=== PATIENT | female | born 1970 | race Caucasian/White ===

== ENCOUNTER → 2020-06-04 17:32 | Outpatient (CLI) | payer BC, SELFPAY ==
[2020-06-04 18:05] LABS: Basophils % 0.5 % (0.1-2.0); Eosinophils # 0.1 K/mm3 (0.0-0.4); Eosinophils % 1.2 % (0.1-12.0); Hematocrit 45.6 % (37.0-47.0); Hemoglobin 14.9 g/dL (12.2-16.2); Lymphocytes # 2.7 K/mm3 (0.7-4.5); Lymphocytes % 32.6 % (10-50); Mean Corpuscular HGB Conc 32.8 g/dL (31.8-35.4); Mean Corpuscular Hemoglobin 30.1 pg (27.0-31.2); Mean Corpuscular Volume 91.8 fl (81-99); Mean Platelet Volume 9.1 fl (7.4-10.4); Monocytes # 0.4 K/mm3 (0.1-1.0); Monocytes % 4.9 % (1.7-9.3); Neutrophils % 60.9 % (37.0-80.0); Platelet Count 287 K/mm3 (142-424); Red Blood Count 4.97 M/mm3 (4.20-5.40); Red Cell Distribution Width 12.6 % (11.5-17.5); White Blood Count 8.2 K/mm3 (4.8-10.8)
[2020-06-04 18:10] LABS: Alanine Aminotransferase 16 U/L (12-78); Albumin Level 4.2 g/dl (3.5-5.0); Albumin/Globulin Ratio 1.4 (1.1-1.8); Alkaline Phosphatase 66 U/L (38-126); Anion Gap 11.8 mEq/L (5-15); Aspartate Amino Transferase 31 U/L (14-36); Bilirubin,Total 0.5 mg/dl (0.2-1.3); Blood Urea Nitrogen 9 mg/dl (7-17); Calcium 9.3 mg/dl (8.4-10.2); Carbon Dioxide 27 mmol/L (22.0-30.0); Chloride 105 mmol/L (98-107); Estimated Glomerular Filt Rate 76 ml/min (>60); GFR (African American) 92 ML/MIN (>60); Glucose 82 mg/dl (74-100); Potassium 4.8 mmoL/L (3.5-5.1); Sodium 139 mmol/L (136-145); Total Protein,Serum 7.2 g/dl (6.3-8.2)
[2020-06-04 18:41] LABS: Thyroid Stimulating Hormone 2.79 uIU/mL (0.465-4.68)
== END ==
PROVIDERS: Visit Provider Family Medicine
DX: R53.83 Other fatigue (principal)
CPT/HCPCS: 80053; 84443; 85025

== ENCOUNTER → 2021-10-28 14:12 | Outpatient (CLI) | payer BC, SELFPAY ==
[2021-10-28 17:07] LABS: Basophils # 0.1 K/mm3 (0-0.2); Basophils % 0.8 % (0.1-2.0); Eosinophils # 0.1 K/mm3 (0.0-0.4); Eosinophils % 0.9 % (0.1-12.0); Hematocrit 43.7 % (37.0-47.0); Hemoglobin 14.6 g/dL (12.2-16.2); Lymphocytes # 2.7 K/mm3 (0.7-4.5); Lymphocytes % 28.1 % (10-50); Mean Corpuscular HGB Conc 33.5 g/dL (31.8-35.4); Mean Corpuscular Hemoglobin 31.1 pg (27.0-31.2); Mean Corpuscular Volume 92.9 fl (81-99); Mean Platelet Volume 9.9 fl (7.4-10.4); Monocytes # 0.5 K/mm3 (0.1-1.0); Neutrophils # 6.3 K/mm3 (1.8-7.8); Neutrophils % 65.2 % (37.0-80.0); Platelet Count 310 K/mm3 (142-424); Red Blood Count 4.71 M/mm3 (4.20-5.40); Red Cell Distribution Width 13.1 % (11.5-17.5); White Blood Count 9.7 K/mm3 (4.8-10.8)
[2021-10-28 17:13] LABS: Alanine Aminotransferase 21 U/L (12-78); Albumin Level 4.2 g/dl (3.5-5.0); Albumin/Globulin Ratio 1.6 (1.1-1.8); Alkaline Phosphatase 66 U/L (38-126); Anion Gap 10.4 mEq/L (5-15); Aspartate Amino Transferase 37 U/L (14-36); Bilirubin,Total 0.6 mg/dl (0.2-1.3); Blood Urea Nitrogen 12 mg/dl (7-17); Calcium 9.1 mg/dl (8.4-10.2); Carbon Dioxide 28 mmol/L (22.0-30.0); Chloride 105 mmol/L (98-107); Chol/HDL Ratio 2.8 (1-3.5); Cholesterol 256 mg/dl (140-200); Estimated Glomerular Filt Rate 88 ml/min (>60); GFR (African American) 106 ML/MIN (>60); Globulin 2.7 g/dL (1.3-3.2); Glucose 85 mg/dl (74-100); HDL Cholesterol 91 mg/dl (40-60); Potassium 4.4 mmoL/L (3.5-5.1); Sodium 139 mmol/L (136-145); Total Protein,Serum 6.9 g/dl (6.3-8.2); Triglycerides 85 mg/dl (30-150); VLDL Cholesterol 17 mg/dL (0-40)
[2021-10-28 17:24] LABS: Direct LDL Cholesterol 121.78 mg/dL (100-129)
== END ==
PROVIDERS: Visit Provider Family Medicine
DX: I10 Essential (primary) hypertension (principal); R74.8 Abnormal levels of other serum enzymes
CPT/HCPCS: 80053; 80061; 85025

== ENCOUNTER → 2021-12-01 12:42 | Outpatient (CLI) | payer BC, SELFPAY ==
--- NOTE | 2021-12-01 12:47 | XR_ITS ---
FINAL REPORT CLINICAL HISTORY: deep cough x3 months FINDINGS: Two views of the chest were obtained. The heart size and pulmonary vascularity are within normal limits. The mediastinum is normal. The lungs are hyperinflated consistent with COPD. There is no acute abnormality. There is no pneumothorax. The bony thorax is intact. IMPRESSION: No acute process. Reviewed, Interpreted and Dictated by Adi Navarrete III, MD Transcribed by Sara Gonzalez Authenticated by Adi Navarrete III, MD on 12/01/2021 02:50:57 PM [facility]
== END ==
PROVIDERS: PCP Family Medicine; Visit Provider Family Medicine
DX: R05.8 Other specified cough (principal)
CPT/HCPCS: 71046

== ENCOUNTER → 2022-12-28 23:00 | Outpatient (CLI) | payer BC, SELFPAY ==
[2022-12-28 18:24] LABS: Basophils # 0.1 K/mm3 (0-0.2); Basophils % 0.7 % (0.1-2.0); Eosinophils # 0.2 K/mm3 (0.0-0.4); Eosinophils % 2.5 % (0.1-12.0); Hematocrit 46.8 % (37.0-47.0); Hemoglobin 14.7 g/dL (12.2-16.2); Lymphocytes # 2.8 K/mm3 (0.7-4.5); Lymphocytes % 37.8 % (10-50); Mean Corpuscular HGB Conc 31.5 g/dL (31.8-35.4); Mean Corpuscular Hemoglobin 29.6 pg (27.0-31.2); Mean Platelet Volume 9.2 fl (7.4-10.4); Monocytes # 0.5 K/mm3 (0.1-1.0); Monocytes % 6.2 % (1.7-9.3); Neutrophils % 52.8 % (37.0-80.0); Platelet Count 312 K/mm3 (142-424); Red Blood Count 4.98 M/mm3 (4.20-5.40); Red Cell Distribution Width 12.9 % (11.5-17.5); White Blood Count 7.5 K/mm3 (4.8-10.8)
[2022-12-28 18:25] LABS: Alanine Aminotransferase 26 U/L (12-78); Albumin Level 4.2 g/dl (3.5-5.0); Albumin/Globulin Ratio 1.4 (1.1-1.8); Alkaline Phosphatase 66 U/L (38-126); Anion Gap 14.5 mEq/L (5-15); Aspartate Amino Transferase 35 U/L (14-36); Bilirubin,Total 0.4 mg/dl (0.2-1.3); Blood Urea Nitrogen 14 mg/dl (7-17); Carbon Dioxide 31 mmol/L (22.0-30.0); Chloride 101 mmol/L (98-107); Cholesterol 243 mg/dl (140-200); Estimated Glomerular Filt Rate 75 ml/min (>60); GFR (African American) 90 ML/MIN (>60); Globulin 2.9 g/dL (1.3-3.2); Glucose 75 mg/dl (74-100); HDL Cholesterol 82 mg/dl (40-60); Potassium 4.5 mmoL/L (3.5-5.1); Sodium 142 mmol/L (136-145); Total Protein,Serum 7.1 g/dl (6.3-8.2); Triglycerides 103 mg/dl (30-150); VLDL Cholesterol 21 mg/dL (0-40)
[2022-12-28 18:37] LABS: Direct LDL Cholesterol 114.94 mg/dL (100-129)
== END ==
PROVIDERS: PCP Family Medicine; Visit Provider Family Medicine
DX: E03.9 Hypothyroidism, unspecified (principal); I10 Essential (primary) hypertension
CPT/HCPCS: 80053; 80061; 85025

== ENCOUNTER 2023-12-13 09:39 | Outpatient (CLI) | payer BC, SELFPAY ==
[2023-12-13 18:13] LABS: Basophils # 0.1 K/mm3 (0-0.2); Basophils % 0.8 % (0.1-2.0); Eosinophils # 0.1 K/mm3 (0.0-0.4); Eosinophils % 1.2 % (0.1-12.0); Hematocrit 44.5 % (37.0-47.0); Hemoglobin 14.3 g/dL (12.2-16.2); Lymphocytes # 2.7 K/mm3 (0.7-4.5); Lymphocytes % 29.3 % (10-50); Mean Corpuscular HGB Conc 32.1 g/dL (31.8-35.4); Mean Corpuscular Hemoglobin 30.3 pg (27.0-31.2); Mean Corpuscular Volume 94.3 fl (81-99); Mean Platelet Volume 9.7 fl (7.4-10.4); Monocytes # 0.5 K/mm3 (0.1-1.0); Monocytes % 5.8 % (1.7-9.3); Neutrophils # 5.9 K/mm3 (1.8-7.8); Neutrophils % 62.8 % (37.0-80.0); Platelet Count 294 K/mm3 (142-424); Red Blood Count 4.72 M/mm3 (4.20-5.40); Red Cell Distribution Width 13.1 % (11.5-17.5); White Blood Count 9.3 K/mm3 (4.8-10.8)
[2023-12-13 18:31] LABS: Alanine Aminotransferase 23 U/L (12-78); Albumin Level 3.9 g/dl (3.5-5.0); Albumin/Globulin Ratio 1.4 (1.1-1.8); Alkaline Phosphatase 59 U/L (38-126); Anion Gap 8.7 mEq/L (5-15); Aspartate Amino Transferase 33 U/L (14-36); Bilirubin,Total 0.5 mg/dl (0.2-1.3); Blood Urea Nitrogen 12 mg/dl (7-17); Calcium 8.9 mg/dl (8.4-10.2); Carbon Dioxide 32 mmol/L (22.0-30.0); Chloride 101 mmol/L (98-107); Chol/HDL Ratio 2.4 (1-3.5); Cholesterol 212 mg/dl (140-200); Estimated Glomerular Filt Rate 65 ml/min (>60); GFR (African American) 79 ML/MIN (>60); Globulin 2.7 g/dL (1.3-3.2); Glucose 86 mg/dl (74-100); HDL Cholesterol 87 mg/dl (40-60); Potassium 3.7 mmoL/L (3.5-5.1); Sodium 138 mmol/L (136-145); Total Protein,Serum 6.6 g/dl (6.3-8.2); Triglycerides 90 mg/dl (30-150); VLDL Cholesterol 18 mg/dL (0-40)
[2023-12-13 18:48] LABS: T4 (Thyroxine) 10.5 ug/dl (5.53-11.0)
[2023-12-13 19:02] LABS: Thyroid Stimulating Hormone 1.62 uIU/mL (0.465-4.68)
== END 2023-12-13 23:59 | disposition home or self-care (01) ==
LOC: LAB.DROPOF 12-14 09:39
PROVIDERS: PCP Family Medicine; Visit Provider Family Medicine
DX: Z00.00 Encounter for general adult medical examination without abnormal findings (principal); Z79.899 Other long term (current) drug therapy
CPT/HCPCS: 80053; 80061; 84436; 84443; 85025

== ENCOUNTER 2025-01-02 12:20 | Outpatient (CLI) | payer BC, SELFPAY ==
--- OUTSIDE RECORDS SUMMARY | 2018-02-04 13:40 | XMS_ITS | Encounter Summary ---
Author [place] [address] Care Team Providers Care Handle And Vent Machine Operator Name Role Phone Kale Mukherjee MD Primary Care Provider [phone] Alisha Whitaker MD Unavailable Encounter Details Date Type Department Care Team (Latest Contact Info) Description 02/04/2018 1:40 PM EDT Hospital Encounter [facility] Referral Lab 1 [place], [place] [id number] Lela Deal, BURN CENTER NURSE [address] [place] [address] Effusion of left knee Social History Tobacco Use Types Packs/Day Years Used Date Smoking Tobacco: Never Smokeless Tobacco: Never Alcohol Use Standard Drinks/Week Comments Yes 0 (1 standard drink = 0.6 oz pur e alcohol) 4 to 8 drinks per year Sexually Active Control Partners Comments Yes OCP, Other-see comments Male Jewell h control Comments No Sex and Gender Information Value Date Recorded Sex Assigned at Not on file Legal Sex Female 12:12 PM EDT Gender Identity Not on file Sexual Orientation Not on file Occupation Industry Job Start Date Job End Date Not on file Not on file Not on file Not on file COVID-19 Exposure Response Date Recorded In the last 10 days, have yo u been in contact with someone who was confirmed or suspected to have Coronavirus/COVID-19? No / Unsure 03/01/2023 1:08 PM EDT documented as of this encounter Plan of Treatment Upcoming Encounters Date Type Department Care Team (Late st Contact Info) Description 10/15/2025 10:50 AM EDT Office Visit [facility] Diabetes [place] [address] [facility] [address] [place] [address] Alisha Whitaker MD [address] [facility] [address] [place] [phone] documented as of this encounter Goals Goal Patient Goal Type Associated Problems Recent Progress Patient-Stated? Author Maintain a healthy diet, exercise regularly and maintain an ideal body weight General Faiza Buitrago CCMA documented as of this encounter Results * URIC ACID (02/05/2018 11:36 AM EDT) Uric Acid 3.9 2.4 - 5.7 mg/dL 02/05/2018 2:47 PM EDT [facility] Blood Venipuncture / Unknown 02/05/2018 11:36 AM EDT 02/05/2018 11:36 AM EDT Lela Deal BURN CENTER NURSE CHEMISTRY ORDERABLES Cyndy l Result Performing Organization Address City/[facility] Co de Phone Number [employer] [address] [place] [address] , [place] [address] * SEDIMENTATION RATE AUTOMATED (02/05/2018 11:36 AM EDT) Sed Rate 2 0 - 20 mm/hr 02/05/2018 3:06 PM EDT [employer] Blood Venipuncture / Unknown 02/05/2018 11:36 AM EDT 02/05/2018 11:36 AM EDT Lela Deal BURN CENTER NURSE HEMATOLOGY ORDERABLES Fin al Result Performing Organization Address City/[facility] Co de Phone Number [employer] [address] [facility] , [place] [address] * RHEUMATOID FACTOR QUANTITATIVE (02/05/2018 11:36 AM EDT) RF Quant 13 <=14 IU/mL 02/05/2018 3:14 PM EDT [facility] Blood Venipuncture / Unknown 02/05/2018 11:36 AM EDT 02/05/2018 11:36 AM EDT us Lela Anita Deal BURN CENTER NURSE IMMUNOLOGY ORDERABLES Fin al Result [facility] [address] [facility] , [place] [address] * CBC WITH DIFF (02/05/2018 11:36 AM EDT) Pathologist [facility] WBC 9.3 3.7 - 10.3 x10(3)/mcL 02/05/2018 2:15 PM EDT [facility] RBC 4.97 3.90 - 5.20 x10(6)/mcL 02/05/2018 2:15 PM EDT [facility] Hgb 14.4 11.2 - 15.7 g/dL 02/05/2018 2:15 PM EDT [facility] Hct 44.2 34.0 - 45.0 % 02/05/2018 2:15 PM EDT [facility] MCV 88.9 79.0 - 98.0 fL 02/05/2018 2:15 PM EDT [facility] MCH 29.0 26.0 - 32.0 pg 02/05/2018 2:15 PM EDT [facility] MCHC 32.6 30.7 - 35.5 g/dL 02/05/2018 2:15 PM EDT [facility] RDW 12.3 <=14.9 % 02/05/2018 2:15 PM EDT [facility] Platelet 320 155 - 369 x10(3)/mcL 02/05/2018 2:15 PM EDT [facility] MPV 10.7 8.8 - 12.5 fL 02/05/2018 2:15 PM EDT [facility] Neut Percent 60.3 % 02/05/2018 2:15 PM EDT [facility], [facility] Comment:Neutrophils equals s egs plus bands Imm Gran% 0.2 % 02/05/2018 2:15 PM EDT [facility] Comment:Automated count of m etamyelocytes, myelocytes and promyelocytes. Lymph Percent 30.0 % 02/05/2018 2:15 PM EDT [facility] [place] Percent 7.4 % 02/05/2018 2:15 PM EDT [facility] Eos Percent 1.3 % 02/05/2018 2:15 PM EDT [facility] Baso Percent 0.8 % 02/05/2018 2:15 PM EDT [facility] Neut # 5.6 1.6 - 6.1 x10(3)/[facility] 02/05/2018 2:15 PM EDT [facility], [facility] Comment:Neutrophils equals s egs plus bands IMMGRAN# 0.0 0.0 - 0.1 x10(3)/[facility] 02/05/2018 2:15 PM EDT [facility], [facility] Comment:Automated count of m etamyelocytes, myelocytes and promyelocytes. An absolute IG <0.1 is reported as 0.0. Lymph # 2.8 1.2 - 3.9 x10(3)/[facility] 02/05/2018 2:15 PM EDT [facility], [facility] [place] # 0.7 0.3 - 0.9 x10(3)/[facility] 02/05/2018 2:15 PM EDT [facility], [facility] Eos# 0.1 0.0 - 0.5 x10(3)/[facility] 02/05/2018 2:15 PM EDT [facility], [facility] Baso # 0.1 0.0 - 0.1 x10(3)/[facility] 02/05/2018 2:15 PM EDT [facility] [employer], [facility] Blood Venipuncture / Unknown 02/05/2018 11:36 AM EDT 02/05/2018 11:36 AM EDT us Lela Howard Toyin BURN CENTER NURSE HEMATOLOGY ORDERABLES Fin al Result [facility], [facility] [address] [facility] , [place] [address] * C-REACTIVE PROTEIN (02/05/2018 11:36 AM EDT) [facility] CRP 2.99 <=5.00 mg/L 02/05/2018 2:47 PM EDT [facility] [employer] Blood Venipuncture / Unknown 02/05/2018 11:36 AM EDT 02/05/2018 11:36 AM EDT Lela Deal BURN CENTER NURSE CHEMISTRY ORDERABLES Cyndy l Result Performing Organization Address [facility] de Phone Number [facility] [employer] [address] [place] [address] * ANTINUCLEAR ANTIBODY SCREEN (02/05/2018 11:36 AM EDT) [facility] RICHY, IgG Negative Negative, Equivocal 02/06/2018 10:16 AM EDT [employer] Comment: RICHY samples are screened using an automated EIA assay. All samples that screen positive are titered by an IFA method and will include an RICHY pattern. A titer of < 1:80 is considered clinically insignificant. In general, a titer >= 1:160 is considered significant positive. Blood Venipuncture / Unknown 02/05/2018 11:36 AM EDT 02/05/2018 11:36 AM EDT Lela Deal BURN CENTER NURSE IMMUNOLOGY ORDERABLES Fin al Result Performing Organization Address [facility] de Phone Number [facility] [employer] [facility] [address] [facility] , [place] [address] documented in this encounter Visit Diagnoses Diagnosis Effusion of left knee Effusion of lower leg joint documented in this encounter Care Teams Handle And Vent Machine Operator Relationship Specialty Start Date End Date Kale Mukherjee MD PCP - General Family Medicine 04/04/17 02/17/18 Alisha Whitaker MD [address] [address] Internal Medicine-Endocrinology, Diabetes & Metabolism 04/10/14 documented as of this encounter
--- OUTSIDE RECORDS SUMMARY | 2021-07-14 05:15 | XMS_ITS | Continuity of Care Document ---
Author Organization [facility] Address [address] [place] [address] Phone Care Team Providers Care Transmissions Systems Operator Name Role Phone Clark MASON, Yolanda Unavailable Unavailable Allergies, Adverse Reactions, Alerts Substance Reaction Status Criticality No Known Allergies Active No Inform ation Medications Medication Instructions Dosage Effective Dates (start - stop) Status Comments ofloxacin 0.3 % eye drops instill 1 drop by ophthalmic route 2 times every day into right eye until follow up visit - Active Hair,Skin and Nails 1 mg iron-66.7 mcg-1,000 mcg tablet - Active Multiple Vitamins tablet take 1 tablet by oral route every day 1 tablet - Active Vitamin D3 25 mcg (1,000 unit) capsule take 1 capsule by oral route every day 1 capsule - Active Control ORAL TABLET - Active ICaps 3,300 unit-5 mg-200mg-75 unit tablet,extended release take 1 capsule by oral route every day - Active Glucosamine Chondroitin 550 mg-30 mg-1 mg capsule - Active lisinopril 20 mg tablet take 1 tablet by oral route every day 20 MG - Active levothyroxine 112 mcg capsule take 1 capsule by oral route every day 112 MCG - Active Procedures Procedure Date Post Op Follow Up Visit Repair Blepharoptosis Conjunctivo-tarso- schroeder's Muscle-levator Resection Repair Blepharoptosis Pbwvkpatib-jjktt-g ueller Muscle Levator Resection Surgery Deposit Visual Field Examination W I And R Limit ed Uni Or Bi OFFICE/OUTPATIENT VISIT, [facility] Advance Directives Directive Yes / No Effective Date File Name No Information Encounters Encounter Description Practice Location Reason(s) For Visit Diagnoses Date Provider Providers Copied on Encounter [facility] , [address] [place], [place], Critical access hospital, tel:[phone] [facility] [address] En[facility]tr for surgical aftcr fol surgery on the skin, subcu 1 Rodas Yolanda. [address] [place], [place], [id number] , [place]. tel:[phone] Referring Provider: No Ref Doc No Referring Doc. [facility], [address] [place], [place], Critical access hospital, tel:[phone] [facility] [place] Ptosis of right eyelid 1 [facility] [place]. [address] [place], [place], [id number] , [place]. tel:[phone] Referring Provider: Yolanda Roman, [address] [place], [address]. tel:[phone] [facility] , [address] [place], [place], Critical [facility], [place] tel:[phone] [facility] [place] Ptosis of right eyelid 1 Rod[address] Yolanda. [address] [place], [place], [id number] , [place]. tel:[phone] Referring Provider: No Ref Doc No Referring Doc. [facility] , [address] [place], [place], [facility], [place] tel:[phone] FRAN Romain Barreto No Information 1 Rod[address] Yolanda. [address] [place], [place], [id number] , . tel:[phone] [facility] , [address] [place], [place], Critical access [facility], [place] tel:[phone] [facility] No Information 1 Rod[address] Yolanda. [address] [place], [place], [id number] , . tel: [phone] Referring Provider: No Ref Doc No Referring Doc. [facility], [address] [place], [address], tel:[phone] [facility] Surgery [facility] No Information 1 Critical access hospital [facility] [place]. [address] [place], [place], [id number] , [place]. tel: [phone] OFFICE/OUTPAT IENT VISIT, [facility] , [address] [place], [address], tel:[phone] [facility] Droopy eyelid (chief complaint) Ptosis, bilateralVisual field defect Rodas Yolanda. [address] [place], [place], [id number] , . tel:[phone] Referring Provider: Axel Powell, [address] [place], [address]. tel:[phone] Family History Family Member Type Diagnosis Age At Onset Mother Problem (finding) Macular degeneration Mother Problem (finding) Cancer, breast Payers Payer name Insurance type Covered green party ID Chloe saleh(s) Margret Cerrato [facility] [place] [id number] Social History Type Description Quantity Date Captured Comments Alcohol Use Details Unknown Caffeine Use Details Unknown Tobacco Use Status No Information Smoking Status No Information Sex Female Chief Complaint And Reason For Visit No Information Reason For Referral Reason For Referral No Information History Of Present Illness Encounter Date Complaint History Of Prese nt Illness Droopy eyelid The 50 year old female presents for evaluation of Droopy eyelid in the right upper lid per Dr Powell. It started year(s) ago. The onset was gradual. Patient states her eyelid feels heavy and makes her feel tired. She states this happens all day and is worse at the end of the day. Patient denies double VA. She states she will raise her brow to see better. She will also manually lift her brow to see better. She will turn her head to the side to see beside her. She states she has trouble reading. The usage of more light helps her while reading. She states she can see her lashes & lids in her field of vision. She denies any tearing issues or dry eyes. The patient denies wearing contacts. Patient is not on any blood thinners. Patient denies any previous eyelid surgery.Pt states she had thyroid ablation in 2010, States she does have graves disease. Functional Status Date Functional Assessmen t No Information Instructions Date Instruction Additional Infor sonia Follow up - Return in PRN Relate d to Ptosis Repair Impression/Plan Assessments Type Assessment Date No Information Patient Care Teams Name Effective Dates (start - stop) Status Members No Information
[2025-01-02 17:59] LABS: Basophils % 0.1 % (0.1-2.0); Eosinophils # 0.1 Kmm3 (0.0-0.4); Eosinophils % 1.8 % (0.1-12.0); Hematocrit 43.3 % (37.0-47.0); Hemoglobin 14.4 g/dL (12.2-16.2); Immature Granulocytes # 0.01 10^3uL; Immature Granulocytes % 0.1 %; Lymphocytes # 2.2 K/mm3 (0.7-4.5); Mean Corpuscular HGB Conc 33.3 g/dL (31.8-35.4); Mean Corpuscular Hemoglobin 29.2 pg (27.0-31.2); Mean Corpuscular Volume 87.8 fl (81-99); Mean Platelet Volume 11.6 fl (7.4-10.4); Monocytes # 0.5 K/mm3 (0.1-1.0); Monocytes % 6.6 % (1.7-9.3); Neutrophils # 4.6 K/mm3 (1.8-7.8); Neutrophils % 61.4 % (37.0-80.0); Nucleated Red Blood Cells # 0 10^3/uL; Nucleated Red Blood Cells % 0 %; Platelet Count 259 K/mm3 (142-424); Red Blood Count 4.93 M/mm3 (4.20-5.40); Red Cell Distribution Width 12.3 % (11.5-17.5); Red Cell Distribution Width-SD 39.8 fL; White Blood Count 7.4 K/mm3 (4.8-10.8)
[2025-01-02 18:17] LABS: Albumin Level 4.3 g/dl (3.5-5.0); Chloride 102 mmol/L (98-107); Potassium 3.7 mmoL/L (3.5-5.1); Sodium 138 mmol/L (136-145)
[2025-01-02 18:20] LABS: Alanine Aminotransferase 28 U/L (12-78); Albumin/Globulin Ratio 1.5 (1.1-1.8); Alkaline Phosphatase 94 U/L (38-126); Anion Gap 8.7 mEq/L (5-15); Aspartate Amino Transferase 33 U/L (14-36); Bilirubin,Total 0.6 mg/dl (0.2-1.3); Blood Urea Nitrogen 17 mg/dl (7-17); Calcium 9.8 mg/dl (8.4-10.2); Carbon Dioxide 31 mmol/L (22.0-30.0); Cholesterol 214 mg/dl (140-200); Estimated Glomerular Filt Rate 74 ml/min (>60); GFR (African American) 90 ML/MIN (>60); Globulin 2.8 g/dL (1.3-3.2); Glucose 92 mg/dl (74-100); Total Protein,Serum 7.1 g/dl (6.3-8.2); Triglycerides 91 mg/dl (30-150); VLDL Cholesterol 18 mg/dL (0-40)
[2025-01-02 18:21] LABS: Chol/HDL Ratio 3.6 (1-3.5); HDL Cholesterol 60 mg/dl (40-60)
[2025-01-02 18:31] LABS: Direct LDL Cholesterol 104.44 mg/dL (100-129)
[2025-01-02 19:02] LABS: HIV Combo NEGATIVE (Negative)
[2025-01-02 19:50] LABS: Hepatitis C Ab Qual. W/ RFX NEGATIVE (Negative)
--- OUTSIDE RECORDS SUMMARY | 2025-01-02 22:47 | XMS_ITS | Clinical Summary ---
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 (ICD-10-CM) 08/09 Active 08/09 Noble Roberson Other specified dorsopathies, site unspecified LUMBAR MYOFASCIAL PAIN SYNDROME 10806803 (SNOMED CT) 08/09 Active 08/09 Noble Roberson Fibromyositis Medications Medication Instructions Start Date Stop Date Generic Name NDC Provider DICLOFENAC SODIUM 75 MG TBEC 1 tab BID DICLOFENAC SODIUM [id number] Rodriguez Dean MD [facility] OMEGA-3 FATTY ACIDS CAPS [id number] Dina Jaquez MA DAILY MULTIVITAMIN CAPS -[place] MULTIPLE VITAMINS-MINERALS [phone] Dina Jaquez MA GNP VITAMIN D TABS -[place] CHOLECALCIFEROL TABS [id number] Dina Jaquez MA CURCUMIN EXTRACT POWD -[place] TURMERIC (CURCUMA LONGA) [id number] Dina Jaquez MA HAIR SKIN & NAILS ADVANCED TABS -[place] MULTIPLE VITAMINS-MINERALS [phone] Dina Jaquez MA GARLIC CAPS -[place] GARLIC CAPS [phone] Dina Jaquez MA COQ10 CAPS Non-[place] COENZYME Q10 CAPS [id number] Dina Jaquez MA LO LOESTRIN FE TABS -[place] NORETHIN-ETH ESTRAD-FE BIPHAS TABS [id number] Dina Jaquez MA LISINOPRIL 20 MG TABS -[place] LISINOPRIL [id number] Dina Jaquez MA DICLOFENAC SODIUM 75 MG TBEC -[place] DICLOFENAC SODIUM [id number] Dina Jaquez MA LEVO-T 112 MCG TABS -[place] LEVOTHYROXINE SODIUM [id number] Dina Jaquez MA Medications Administered No information available. Allergies, Adverse Reactions, Alerts Observed No Known Drug Allergies at Results No information available. Plan of Care No information available. Procedures Code Procedure Name Date Entry Date 23581 Ther Ex 89722 Manual Therapy 71545 Ther Ex 69504 Manual Therapy 20496 Ther Ex 21561 Manual Therapy 91345 Ther Ex 48773 Manual Therapy 75483 Ther Ex 97388 Mechanical Traction 93800 Manual Therapy 61683 Ther Ex 35212 Mechanical Traction 87379 Manual Therapy 25122 Ther Ex 43040 Mechanical Traction 17112 Manual Therapy 94346 Ther Ex 57309 Mechanical Traction 58109 Manual Therapy 96388 Ther Ex 45880 Mechanical Traction 54115 Manual Therapy 47018 Evaluation - Moderate 08/13 52140 Ther Ex 80992 Manual Therapy 10118 Mechanical Traction Vital Signs Date Name Value Unit Description BMI (Body Mass Index) 28.06 kg/m2 Bod y Mass Index (Ratio) Height 69 [in_us] height E&M Weight Measured 190 [lb_av] weight E& M Weight Measured 190 [lb_av] weight E& M Immunizations No information available. Advance Directives No information available.
--- OUTSIDE RECORDS SUMMARY | 2025-01-02 22:48 | XMS_ITS | Encounter Summary ---
Author Organization [place] [address] Care Team Providers Care Computer Systems Security Administrator Name Role Phone Kale Mukherjee MD Primary Care Provider [phone] Kale Mukherjee MD Unavailable Alisha Whitaker MD Unavailable [phone] Reason for Visit * Reason Comments Medication Refill Encounter Details Date Type Department Care Team (Late st Contact Info) Description 12/20/2024 [facility]ill [facility] [address] [place] [address] Hilda Ness MD [address] [place] [address] Medication Refill Social History Tobacco Use Types Packs/Day Years [...] file Not on file Not on file documented as of this encounter Ordered Prescriptions Prescription Sig Dispense Quantity Refills Last Filled Start Date End Date SPRINTEC, 28, 0.25-0.035 mg Oral TabletIndications:Rand rveillance for control, oral contraceptives Take 1 tablet by mouth once daily 84 Tablet 12/22/2024 documented in this encounter Plan of Treatment Upcoming Encounters Date Type Department Care Team (Late st Contact Info) Description 10/15/2025 10:50 AM EDT Office Visit [facility] [address] [address] Alisha Whitaker MD [address] [employer] [address] [address] documented as of this encounter Goals Goal Patient Goal Type Associated Problems Recent Progress Patient-Stated? Author Maintain a healthy diet, exercise regularly and maintain an ideal body weight General No Faiza Pepper CCMA documented as of this encounter Visit Diagnoses Diagnosis Surveillance for control, oral contraceptives Surveillance of previously prescribed contraceptive pill documented in this encounter Discontinued Medications Medication Sig Discontinue Reason Start Date End Da te norgestimate-ethinyl estradioL (SPRINTEC, 28,) 0.25-35 mg-mcg Oral TabletIndications:Surveill ance for control, oral contraceptives Take 1 Tablet by mouth daily. 09/28/2023 12/22/2024 documented as of this encounter Care Teams Computer Systems Security Administrator Relationship Specialty Start Date End Date Kale Mukherjee MD PCP - General Family Medicine 02/18/18 Kale Mukherjee MD Family Medicine 02/18/18 Alisha Whitaker MD [address] [address] Internal Medicine-Endocrinology, Diabetes & Metabolism 04/10/14 documented as of this encounter
--- OUTSIDE RECORDS SUMMARY | 2025-01-02 22:48 | XMS_ITS | Clinical Summary ---
Author Organization [facility] Address [address] [place] [address] Care Team Providers Care Landing Signal Officer Name Role Phone Kale Mukherjee MD Primary Care Provider [phone] Social History Tobacco Use Types Packs/Day Years Used Date Smoking Tobacco: Never Assessed Comments Unknown Sex and Gender Information Value Date Recorded Sex Assigned at Not on file Legal Sex Female 2:51 PM EDT Gender Identity Not on file Sexual Orientation Not on file Plan of Treatment Health Maintenance Due Date Last Done Comments Cologuard 1968 Colonoscopy 1968 Colorectal Cancer Screening 1968 FIT 1968 Lipid Screening 1986 Tetanus Vaccination (Every 10 Years) 1986 Cervical Cancer Screening 1989 Breast Cancer Screening 2018 Pneumococcal Vaccine: 50+ Years (1 of 1 - PCV) 019 Zoster-RZV(Shingrix) (1 of 2) 2018 COVID-19 Vaccine ( season) 2024 Depression Screening 07/23/2024 Influenza Vaccination (Season Ended) 2025 Insurance [employer] Member Subscriber Plan / Payer (Ef fective 2017-Present) Name:Tamiko Christine Relation to Subscriber:Self Name:Tamiko Christine Payer ID:[id number] (NAIC) Group ID:Not on file Type:PPO Address: [facility] [id number] [place] [id number] Care Teams Landing Signal Officer Relationship Specialty Start Date End Date Kale Mukherjee MD PCP - General Family Medicine 03/14/18
--- OUTSIDE RECORDS SUMMARY | 2025-01-02 22:48 | XMS_ITS | Clinical Summary ---
Author Organization [facility] Address [facility] [place] [address] Phone Care Team Providers Care Dulite Machine Bluer Name Role Phone Kale Mukherjee MD Primary Care Provider [phone] Kale Mukherjee MD Unavailable Alisha Whitaker MD Unavailable Allergies No known active allergies Medications Glucosamine Sulfate 1,000 mg Cap Take 2 Capsules by mouth two times a week on Sunday and Sunday. Active TURMERIC ORAL Take by mouth. Active Cholecalciferol, Vitamin D3, 125 mcg (5,000 unit) Oral Capsule Take 5,000 Units by mouth three times a week. Active vit A/vit C/biotin/zinc/candie er (GWLS-THXK-CKAK, T A,C-BIOTIN, ORAL) Take 2 Each by mouth daily. Active nebivoloL (BYSTOLIC) 10 mg Oral Tablet Take 10 mg by mouth daily. 08/28/19 23 Active hydroCHLOROthiazid e 25 mg Oral Tablet Take by mouth 2 times daily. Active LEVOthyroxine (SYNTHROID) 100 mcg Oral Tablet TAKE ONE (1) TABLET FOR SIX (6) DAYS A WEEK, THEN TAKE ONE AND A HALF (1 & 1/2) TABLETS ON DAY 7 105 Tablet 3 10/11/19 25 Active SPRINTEC, 28, 0.25-0.035 mg Oral TabletIndications: Surveillance for control, oral contraceptives Take 1 tablet by mouth once daily 84 Tablet 12/23/19 25 Active norgestimate-ethin yl estradioL (SPRINTEC, 28,) 0.25-35 mg-mcg Oral TabletIndications: Surveillance for control, oral contraceptives Take 1 Tablet by mouth daily. 84 Tablet 4 09/28/19 24 025 Discontinued Active Problems Problem Noted Date Diagnosed Date Vitamin D deficiency 12/30/2013 Hypothyroidism, postablative 08/23/2011 Graves disease 07/11/2010 Resolved Problems Problem Noted Date Diagnosed Date Resolved Date Fatigue 03/29/2012 10/08/2015 Anemia 03/29/2012 05/22/2013 DUB (dysfunctional uterine bleeding) 12/19/2011 06/30/2021 Thyrotoxicosis 07/11/2010 05/09/2012 Encounters Date Type Department Care Team Description 12/20/2024 Refill [facility] [address] [facility] [place] [address] Hilda Ness MD Medication Refill 10/23/2024 1:41 PM EDT - 10/23/2024 11:59 PM EDT Hospital Encounter [facility] [place] [address] Hilda Ness MD Breast pain Discharge Disposition: Home or Self Care 10/23/2024 12:35 PM EDT - 10/23/2024 1:40 PM EDT Hospital Encounter [facility] [place] [address] Hilda Ness MD Breast pain Discharge Disposition: Home or Self Care 10/10/2024 1:00 PM EDT Office Visit [facility] 1500 [facility] [address] [place] [address] Alisha Whitaker MD Hypothyroidism, postablative (Primary Dx); Graves disease; Vitamin D deficiency 10/10/2024 10:45 AM EDT Office Visit [facility] [address] [facility] [place] [address] Hilda Ness MD Well female exam with routine gynecological exam (Primary Dx); Breast pain 10/08/2024 10:30 AM EDT - 10/08/2024 11:59 PM EDT Hospital Encounter [facility] [address] [place] [address] Hypothyroidism, postablative; Vitamin D deficiency Discharge Disposition: Home or Self Care from Last 3 Months Immunizations Immunization Administration Dates Next Due PPD Test 10/23/2012 Surgical History Surgery Date Site/Laterality Comments HERNIA REPAIR age 14 DILATION AND CURETTAGE OF UTERUS 07/23/2011 - 07/22/2012 KNEE SURGERY 11/24/2016 Left KNEE ARTHROSCOPY 03/01/2018 Left LEFT KNEE ARTHROSCOPY DEBRIDEMENT LATERAL MENISCECTOMY CHONDROPLASTY AND DEBRIDEMENT OF FIBROTIC FAT PAD ; Surgeon: Josse Saini MD; Location: [facility]; Service: Orthopedics HERNIA REPAIR 07/23/1984 - 07/22/1985 DILATION AND CURETTAGE OF UTERUS 12/26/2011 Vagina /N/A DILATION & CURETTAGE HYSTEROSCOPY; Surgeon: Oscar Miller MD; Location: [facility]; Service: Gynecology KNEE ARTHROSCOPY 11/24/2016 Left LEFT KNEE ARTHROSCOPY DEBRIDEMENT LATERAL MENISCECTOMY CHONDROPLASTY; Surgeon: Josse Saini MD; Location: [facility]; Service: Orthopedics KNEE ARTHROPLASTY 02/20/2018 - 03/22/2018 LEFT KNEE BELPHAROPTOSIS REPAIR 05/23/2021 - 06/21/2021 Right Medical History Medical History Date Comments Thyroid disease Anxiety Fear of needles will be taking a tivan before surgery Thyrotoxicosis Grave's disease s/p SANCHEZ ablation 05/02 Hypothyroidism, postablative 08/23/2011 Vitamin D deficiency 12/30/2013 Motion sickness Hypertension 2020 Hyperthyroidism Family History Medical History Relation Name Comments Heart Failure Father CHF Breast Cancer Mother Ana Maria Ricci Cancer Mother Ana Maria Ricci High Blood Pressure Mother Ana Maria Ricci Lung Cancer Mother Ana Maria Ricci Anesth Problems Neg Hx Relation Name Status Comments Father Mother Ana Maria Ricci Social History Tobacco Use Types Packs/Day Years Used Date Smoking Tobacco: Never Smokeless Tobacco: Never Tobacco Cessation:Counseling Given: Not Answered Alcohol Use Standard Drinks/Week Comments Yes 0 [...] file Not on file Not on file Obstetrics History Para Term AB IAB SAB Ectopic Multiple Livin g Live Births 0 0 0 0 0 0 0 0 0 0 0 Last Filed Vital Signs Vital Sign Reading Time Taken Comments Blood Pressure 142/62 10/10/2024 12:44 PM EDT Pulse 64 10/10/2024 12:44 PM EDT Temperature 36.9 C (98.5 F) 03/01/2018 1:00 PM EDT Respiratory Rate 18 10/10/2024 12:44 PM EDT Oxygen Saturation 99% 07/07/2020 8:17 AM EST Inhaled Oxygen Concentration - - Weight 85.7 kg (189 lb) 10/23/2024 1:28 PM EDT Height 174.6 cm (5' 8.75 ) 10/23/2024 1:28 PM ED T Body Mass Index 28.11 10/23/2024 1:28 PM EDT Plan of Treatment Upcoming Encounters Date Type Department Care Team (Late st Contact Info) Description 10/15/2025 10:50 AM EDT Office Visit [facility] 1500 [facility] [address] [place] [phone] Alisha Whitaker MD 1500 [facility] [address] [place] [phone] Health Maintenance Due Date Last Done Comments Annual Wellness Exam 10/20/1971 DTaP/TDaP/Td (1 - Tdap) 10/20/1987 Hepatitis B Vaccine (1 of 3 - 19+ 3-dose series) 10/20/1987 Cologuard 2013 FIT 2013 Sigmoidoscopy 2013 Virtual Colonography 2013 Pneumococcal Vaccine 50+ (1 of 1 - PCV) 2018 Zoster (1 of 2) 2018 COVID-19 Vaccine ( season) 2024 06/23/2021, 10/21/2020, 09/16/2020 Influenza Vaccine (Season Ended) 2025 Pap Smear 09/27/2026 09/28/2023, 0202/2023, 08/30/2022, Additional history exists Breast Cancer Screening 10/23/2026 10/24/19, 05/29/2024, 03/01/2023, Additional history exists Cervical Cancer Screening 09/27/2028 HPV/Pap Cotest 09/27/2028 09/28/2023 Colon Cancer Screening 03/16/2031 Colonoscopy 03/16/2031 03/16/2021 Meningococcal B Vaccine Aged Out No l onger eligible based on patient's age to complete this topic Goals Goal Patient Goal Type Associated Problems Recent Progress Patient-Stated? Author Maintain a healthy diet, exercise regularly and maintain an ideal body weight General No Faiza Pepper, TINO Procedures Procedure Name Priority Date/Time Associated Diagnosis Comments MM US BREAST LIMITED RIGHT Routine 10/23/2024 2:08 PM EDT Breast pain MM MAMMO DIGITAL ANIVAL DIAGN RIGHT Routine 10/23/2024 1:36 PM EDT Breast pain VITAMIN D 25 HYDROXY Routine 10/08/2024 10:42 AM EDT Vitamin D deficiency THYROID STIMULATING HORMONE Routine 10/08/2024 10:42 AM EDT Hypothyroidism, postablative TOPOGRAPHY TECHNICIAN CYTOLOGY REQUEST (PAP ONLY) Routine 09/28/2023 1:20 PM EST Well female exam with routine gynecological exam from Last 3 Months or Most Recently Relevant to Health Maintenance Results * MM US BREAST LIMITED RIGHT (10/23/2024 2:08 PM EDT) Anatomical Region Laterality Modality Breast Right Ultrasound 10/23/2024 2:08 PM EDT Impressions 10/23/2024 2:07 PM EDT Negative ([id number]) ASSESSMENT TEXT: RECOMMENDATION: Return to Annual Screening Mammogram . . COMMENTS: DISCLAIMER *The patient was notified by MyChart or mail of the results for this examination. *The patient's information was entered into a reminder system with a target due date for the next breast imaging, in accordance with the [employer] and the Society of Breast Imaging recommendations. *Breast Imaging has a false negative rate of 15%. *Any patient with a palpable abnormality, unexplained by breast imaging, should be managed on a clinical basis by the attending physician. Narrative 10/23/2024 2:07 PM EDT EXAM: MM US BREAST LIMITED RIGHT EXAM DATE: INDICATION: N64.4-Rcxzqbhwea-HTQ-10-CM COMPARISON STUDIES: Compared with prior studies the most recent being 10/23/2024 MM MAMMO DIGITAL ANIVAL DIAGN RIGHT at [facility] 05/29/2024 MM MAMMO DIGITAL ANIVAL SCREEN BILAT at [facility] 03/01/2023 MM MAMMO DIGITAL ANIVAL SCREEN BILAT at [facility] FINDINGS: No focal sonographic suspicious finding in the right breast 10:00 location to the axillary region where the patient feels a palpable abnormality in area pain. Normal-appearing dense breast tissue. No definite masses. Procedure Note Perry Carmen III, MD - 10/23/2024 EXAM: MM US BREAST LIMITED RIGHT EXAM DATE: INDICATION: N64.7-Azqxjpinfc-PAR-10-CM COMPARISON STUDIES: Compared with prior studies the most recent being 10/23/2024 MM MAMMO DIGITAL ANIVAL DIAGN RIGHT at [facility] 05/29/2024 MM MAMMO DIGITAL ANIVAL SCREEN BILAT at [facility] 03/01/2023 MM MAMMO DIGITAL ANIVAL SCREEN BILAT at [facility] FINDINGS: No focal sonographic suspicious finding in the right [id number]:00 location to the axillary region where the patient feels a palpableabnormality in area pain. Normal-appearing dense breast tissue. No definite masses. IMPRESSION: Negative (QQC-Pvepzepv-7) ASSESSMENT TEXT: RECOMMENDATION: Return to Annual Screening Mammogram . . COMMENTS: DISCLAIMER *The patient was notified by MyChart or mail of the results for this examination. *The patient's information was entered into a reminder system with atarget due date for the next breast imaging, in accordance with the [employer] and the Society of Breast Imaging recommendations. *Breast Imaging has a false negative rate of 15%. *Any patient with a palpable abnormality, unexplained by breast imaging,should be managed on a clinical basis by the attending physician. Hilda Ness MD IMG MAMMOGRAPHY ORDEllen ANNETTE Final Result * (ABNORMAL) MM MAMMO DIGITAL ANIVAL DIAGN RIGHT (10/23/2024 1:36 PM EDT) Anatomical Region Laterality Modality Breast Right Mammography 10/23/2024 1:36 PM EDT Impressions 10/23/2024 1:44 PM EDT evaluation. IMPRESSION: Incomplete: Need additional imaging evaluation ([id number]) ASSESSMENT TEXT: RECOMMENDATION: Additional Imaging Breast Ultrasound Right . . COMMENTS: DISCLAIMER *The patient was notified by MyChart or mail of the results for this examination. *The patient's information was entered into a reminder system with a target due date for the next breast imaging, in accordance with the [employer] and the Society of Breast Imaging recommendations. *Breast Imaging has a false negative rate of 15%. *Any patient with a palpable abnormality, unexplained by breast imaging, should be managed on a clinical basis by the attending physician. Narrative 10/23/2024 1:44 PM EDT EXAM: MM MAMMO DIGITAL ANIVAL DIAGN RIGHT EXAM DATE: 10/23/2024 1:36 PM INDICATION: N64.8-Erfknxpvfj-IIS-10-CM COMPARISON STUDIES: Compared with prior studies the most recent being 05/29/2024 MM MAMMO DIGITAL ANIVAL SCREEN BILAT at [facility] 03/01/2023 MM MAMMO DIGITAL ANIVAL SCREEN BILAT at [facility] 02/27/2022 MM MAMMO DIGITAL ANIVAL SCREEN BILAT at [facility] TISSUE DENSITY: The breasts are heterogeneously dense, which may obscure small masses. FINDINGS: There are no focal findings corresponding to patient's palpable finding in the upper outer quadrant right breast approximately 10:00 location. No focal findings to correspond to patient's area pain involving the right axillary region. Ultrasound evaluation recommended of these regions for further Procedure Note Perry Carmen III, MD - 10/23/2024 EXAM: MM MAMMO DIGITAL ANIVAL DIAGN RIGHT EXAM DATE: 10/23/2024 1:36 PM INDICATION: N64.8-Hcgadbcjfx-BJO-10-CM COMPARISON STUDIES: Compared with prior studies the most recent being 05/29/2024 MM MAMMO DIGITAL ANIVAL SCREEN BILAT at [facility] 03/01/2023 MM MAMMO DIGITAL ANIVAL SCREEN BILAT at [facility] 02/27/2022 MM MAMMO DIGITAL ANIVAL SCREEN BILAT at [facility] TISSUE DENSITY: The breasts are heterogeneously dense, which may obscuresmall masses. FINDINGS: There are no focal findings corresponding to patient'spalpable finding in the upper outer quadrant right breast approximately 10:00location. No focal findings to correspond to patient's area pain involving theright axillary region. Ultrasound evaluation recommended of these regions forfurther IMPRESSION: evaluation. IMPRESSION: Incomplete: Need additional imaging evaluation ([id number]-Gtheivea-2) ASSESSMENT TEXT: RECOMMENDATION: Additional Imaging Breast Ultrasound Right . . COMMENTS: DISCLAIMER *The patient was notified by MyChart or mail of the results for this examination. *The patient's information was entered into a reminder system with atarget due date for the next breast imaging, in accordance with the [employer] and the Society of Breast Imaging recommendations. *Breast Imaging has a false negative rate of 15%. *Any patient with a palpable abnormality, unexplained by breast imaging,should be managed on a clinical basis by the attending physician. us Hilda Ness MD IM MAMMOGRAPHY ORDEllen BRYANT Final Result * VITAMIN D 25 HYDROXY (10/08/2024 10:42 AM EDT) Vit D 25 OH 47.8 30.0 - 150.0 ng/mL 10/08/2024 4:16 PM EDT [employer] Comment: Preferred: >= 30 ng/mL Insufficient: 21-29 ng/mL Deficient <= 20 ng/mL Possible Toxicity: >150 ng/mL Samples should not be taken from patients receiving therapy with high biotin doses (i.e. > 5 mg/day) until at least 8 hours following the last biotin administration. Blood VENOUS BLOOD / Unknown Venipuncture / Unknown 10/08/2024 10:42 AM EDT 10/08/2024 10:42 AM EDT Alisha Whitaker MD CHEMISTRY ORDERABLES Fin al Result Performing Organization Address [facility] de Phone Number [facility] [employer] [address] , [place] [address] * THYROID STIMULATING HORMONE (10/08/2024 10:42 AM EDT) TSH 0.797 0.270 - 4.200 mcIU/mL 10/08/2024 3:37 PM EDT [facility] [employer] [facility] Blood VENOUS BLOOD / Unknown Venipuncture / Unknown 10/08/2024 10:42 AM EDT 10/08/2024 10:42 AM EDT Narrative [facility] [employer] [facility] - 10/08/2024 3:37 PM EDT Ingestion of juancho doses of biotin (>5 mg/day) taken within 8 hours of drawing blood sample can interfere with this immunoassay test. Alisha Whitaker MD CHEMISTRY ORDERABLES Fin al Result Performing Organization Address [facility] de Phone Number [facility] [employer] [address] , [facility] [place] [address] * TOPOGRAPHY TECHNICIAN CYTOLOGY REQUEST (PAP ONLY) (09/28/2023 1:20 PM EST) CASE REPORT Gynecologic Cytology Report Case: [id number] Authorizing Provider: Hilda Ness, Collected: 09/28/2023 1320 Ordering Location: [facility]g Received: 09/28/2023 1320 First Screen: Mitchel Aguilar, CT Rescreen: Radha Molina CT Specimen: LIQUID-BASED PAP - CERVICAL, Cervix 10/04/2023 1:15 PM EDT [facility] PAP FINAL DIAGNOSIS Negative for intraepithelial lesion or malignancy 10/04/2023 1:15 PM EDT [facility] at 1315 EDT MICROSCOPIC DESCRIPTION Microscopic examination is performed and the findings corroborate the diagnosis. 10/04/2023 1:15 PM EDT [facility] PAP SMEAR ADEQUACY Satisfactory for evaluation 10/04/2023 1:15 PM EDT [facility] PAP ORGANISMS NOTED Shift in zaira suggestive of bacterial vaginosis. 10/04/2023 1:15 PM EDT [facility] ENDOCERVICAL T-ZONE Transformation zone absent. 10/04/2023 1:15 PM EDT [facility] EMBEDDED IMAGES 1:15 PM EDT [facility] PAP DISCLAIMER The Pap Smear is a screening test that aids in the detection of cervical cancer and cancer precursors. Both false positive and false negative results can occur. The test should be used at regular intervals, and positive results should be confirmed before definitive therapy. Processed using the ThinPrep Lumber Inspector Automated cytology screening device ([employer]ne). 10/04/2023 1:15 PM EDT [facility] Th[employer] Prep SPECIMEN FROM UTERINE CERVIX / Unknown 09/28/2023 1:20 PM EST 09/28/2023 1:20 PM EST Hilda Ness MD CYTOLOGY ORDERABLES Final Result [facility] [address] [place] [address] from Last 3 Months or Most Recently Relevant to Health Maintenance Insurance [employer] PPO Member Subscriber Plan / Payer (Ef fective 2021-Present) Name:Tamiko Christine Relation to Subscriber:Self Name:Tamiko Christine Payer ID:[id number] (NAIC) Type:Not on file Address: [id number] [place] [phone] [place] [address] PPO Care Teams Dulite Machine Bluer Relationship Specialty Start Date End Date Kale Mukherjee MD PCP - General Family Medicine 02/18/18 Kale Mukherjee MD Family Medicine 02/18/18 Alisha Whitaker MD [address] [address] Internal Medicine-Endocrinology, Diabetes & Metabolism 04/10/14
[2025-01-04 09:16] LABS: Hepatitis B Surface Antigen Negative (Negative)
== END 2025-01-02 23:59 | disposition home or self-care (01) ==
LOC: LAB.DROPOF 22:45
PROVIDERS: PCP Family Medicine; Visit Provider Family Medicine
DX: Z00.00 Encounter for general adult medical examination without abnormal findings (principal); Z11.59 Encounter for screening for other viral diseases
CPT/HCPCS: 80053; 80061; 85025; 86803; 87340; 87389

== ENCOUNTER 2025-03-30 14:00 | Outpatient (CLI) | payer BC, SELFPAY ==
--- OUTSIDE RECORDS SUMMARY | 2018-02-04 13:40 | XMS_ITS | Encounter Summary ---
Author Organization [place] [address] Care Team Providers Care Grinder Watch Parts Name Role Phone Kale Mukherjee MD Primary Care Provider [phone] Alisha Whitaker MD Unavailable [phone] Encounter Details Date Type Department Care Team (Latest Contact Info) Description 02/04/2018 1:40 PM EDT Hospital Encounter [facility] Referral Lab 1 [place], [place] [phone] Lela Deal, GLASS CUTTER HELPER [address] [place] [address] Effusion of left knee Social History Tobacco [...] AM EDT Office Visit [facility] Diabetes [place] [address] [facility] [address] [place] [phone] Alisha Whitaker MD [address] [facility] [address] [place] [address] documented as of this encounter Goals Goal Patient Goal Type Associated Problems Recent Progress Patient-Stated? Author Maintain a healthy diet, exercise regularly and maintain an ideal body weight General Faiza Buitrago CCMA documented as of this encounter Results * URIC ACID (02/05/2018 11:36 AM EDT) Uric Acid 3.9 2.4 - 5.7 mg/dL 02/05/2018 2:47 PM EDT [facility] Blood Venipuncture / Unknown 02/05/2018 11:36 AM EDT 02/05/2018 11:36 AM EDT Lela Deal GLASS CUTTER HELPER CHEMISTRY ORDERABLES Cyndy l Result Performing Organization Address City/[facility] Co de Phone Number [facility] [address] [place] [address] , [place] [address] * SEDIMENTATION RATE AUTOMATED (02/05/2018 11:36 AM EDT) Sed Rate 2 0 - 20 mm/hr 02/05/2018 3:06 PM EDT [facility] Blood Venipuncture / Unknown 02/05/2018 11:36 AM EDT 02/05/2018 11:36 AM EDT Lela Deal GLASS CUTTER HELPER HEMATOLOGY ORDERABLES Fin al Result Performing Organization Address City/[facility] Co de Phone Number [facility] [address] [facility] , [place] [address] * RHEUMATOID FACTOR QUANTITATIVE (02/05/2018 11:36 AM EDT) RF Quant 13 <=14 IU/mL 02/05/2018 3:14 PM EDT [facility] Blood Venipuncture / Unknown 02/05/2018 11:36 AM EDT 02/05/2018 11:36 AM EDT us Lela Anita Deal GLASS CUTTER HELPER IMMUNOLOGY ORDERABLES Fin al Result [facility] [address] [facility] , [place] [address] * CBC WITH DIFF (02/05/2018 11:36 AM EDT) WBC 9.3 3.7 - 10.3 x10(3)/mcL 02/05/2018 [...] % 02/05/2018 2:15 PM EDT [facility], [facility] Comment:Neutrophils equals s egs plus bands Imm Gran% 0.2 % 02/05/2018 2:15 PM EDT [facility] Comment:Automated count of m etamyelocytes, myelocytes and promyelocytes. Lymph Percent 30.0 % 02/05/2018 2:15 PM EDT [facility] [place] Percent 7.4 % 02/05/2018 2:15 PM EDT [facility] Eos Percent 1.3 % 02/05/2018 2:15 PM EDT [facility] Baso Percent 0.8 % 02/05/2018 2:15 PM EDT [facility] Neut # 5.6 1.6 - 6.1 x10(3)/[facility] 02/05/2018 2:15 PM EDT [facility], [facility] Comment:Neutrophils equals s egs plus bands IMMGRAN# 0.0 0.0 - 0.1 x10(3)/[facility] 02/05/2018 2:15 PM EDT [facility], [facility] Comment:Automated count of m etamyelocytes, myelocytes and promyelocytes. An absolute IG <0.1 is reported as 0.0. Lymph # 2.8 1.2 - 3.9 x10(3)/[facility] 02/05/2018 2:15 PM EDT [facility], [facility] [place] # 0.7 0.3 - 0.9 x10(3)/[facility] 02/05/2018 2:15 PM EDT [facility], [facility] Eos# 0.1 0.0 - 0.5 x10(3)/[facility] 02/05/2018 2:15 PM EDT [facility], [facility] Baso # 0.1 0.0 - 0.1 x10(3)/[facility] 02/05/2018 2:15 PM EDT [facility], [facility] Blood Venipuncture / Unknown 02/05/2018 11:36 AM EDT 02/05/2018 11:36 AM EDT us Lela Howard Toyin GLASS CUTTER HELPER HEMATOLOGY ORDERABLES Fin al Result [facility], [facility] [address] [facility] [facility] [place] [address] * C-REACTIVE PROTEIN (02/05/2018 11:36 AM EDT) [facility] CRP 2.99 <=5.00 mg/L 02/05/2018 2:47 PM EDT [facility] [employer] Blood Venipuncture / Unknown 02/05/2018 11:36 AM EDT 02/05/2018 11:36 AM EDT Lela Deal GLASS CUTTER HELPER CHEMISTRY ORDERABLES Cyndy l Result Performing Organization Address [facility] de Phone Number [facility] [employer] [address] , [place] [address] * ANTINUCLEAR ANTIBODY SCREEN (02/05/2018 11:36 AM EDT) [facility] RICHY, IgG Negative Negative, Equivocal 02/06/2018 10:16 AM EDT [facility] Comment: RICHY samples are screened using an automated EIA assay. All samples that screen positive are titered by an IFA method and will include an RICHY pattern. A titer of < 1:80 is considered clinically insignificant. In general, a titer >= 1:160 is considered significant positive. Blood Venipuncture / Unknown 02/05/2018 11:36 AM EDT 02/05/2018 11:36 AM EDT Lela Deal APRN IMMUNOLOGY ORDERABLES Fin al Result Performing Organization Address [facility] de Phone Number [facility] [employer] [facility] [address] [facility] , [place] [address] documented in this encounter Visit Diagnoses Diagnosis Effusion of left knee Effusion of lower leg joint documented in this encounter Care Teams Grinder Watch Parts Relationship Specialty Start Date End Date Kale Mukherjee MD PCP - General Family Medicine 04/04/17 02/17/18 Alisha Whitaker MD [address] [address] Internal Medicine-Endocrinology, Diabetes & Metabolism 04/10/14 documented as of this encounter
[2025-03-30 19:57] LABS: Hematocrit 43.6 % (37.0-47.0); Hemoglobin 14.4 g/dL (12.2-16.2); Immature Granulocytes % 0.3 %; Mean Corpuscular HGB Conc 33.0 g/dL (31.8-35.4); Mean Corpuscular Hemoglobin 29.0 pg (27.0-31.2); Mean Corpuscular Volume 87.7 fl (81-99); Nucleated Red Blood Cells % 0 %; Platelet Count 288 K/mm3 (142-424); Red Blood Count 4.97 M/mm3 (4.20-5.40); Red Cell Distribution Width-SD 43.7 fL; White Blood Count 7.5 K/mm3 (4.8-10.8)
[2025-03-30 20:37] LABS: Albumin Level 4.2 g/dl (3.5-5.0); Albumin/Globulin Ratio 1.7 (1.1-1.8); Blood Urea Nitrogen 15 mg/dl (7-17); Calcium 9.1 mg/dl (8.4-10.2); Carbon Dioxide 30 mmol/L (22.0-30.0); Chloride 102 mmol/L (98-107); Creatinine,Serum 0.70 mg/dl (0.52-1.04); Estimated Glomerular Filt Rate 87 ml/min (>60); GFR (African American) 105 ML/MIN (>60); Globulin 2.5 g/dL (1.3-3.2); Glucose 58 mg/dl (74-100); Potassium 4.0 mmoL/L (3.5-5.1); Total Protein,Serum 6.7 g/dl (6.3-8.2); Uric Acid 4.2 mg/dl (2.5-6.2)
[2025-03-30 21:05] LABS: Thyroid Stimulating Hormone 0.37 uIU/mL (0.465-4.68)
[2025-03-30 21:24] LABS: Vitamin B12 615 pg/mL (239-931)
[2025-03-30 21:30] LABS: Alanine Aminotransferase 26 U/L (12-78); Alkaline Phosphatase 73 U/L (38-126); Anion Gap 13.0 mEq/L (5-15); Aspartate Amino Transferase 35 U/L (14-36); Bilirubin,Total 0.8 mg/dl (0.2-1.3); Sodium 141 mmol/L (136-145)
--- OUTSIDE RECORDS SUMMARY | 2025-03-31 11:01 | XMS_ITS | Clinical Summary ---
Author Organization [facility] Address [address] [place] [address] Phone Care Team Providers Care Management Professional Name Role Phone Rodriguez Dean MD Conditions or Problems Problem Name Problem Code Onset Date Status Entry Date Provider Comment Standard Description Annotate LUMBAR RADICULOPATHY RIGHT L5 [id number] (SNOMED CT) 08/09 Active 08/09 Noble Roberson Lumbar radiculopathy HERNIATED NUCLEUS PULPOSUS L5-S1 M53.80 (ICD-10-CM) 08/09 Active 08/09 Noble Roberson Other specified dorsopathies, site unspecified LUMBAR MYOFASCIAL PAIN SYNDROME 66000180 (SNOMED CT) 08/09 Active 08/09 Noble Roberson Fibromyositis Medications Medication Instructions Start Date Stop Date Generic Name NDC Provider DICLOFENAC SODIUM 75 MG TBEC 1 tab BID DICLOFENAC SODIUM [id number] Rodriguez Dean MD [facility] -[place] OMEGA-3 FATTY ACIDS CAPS [id number] Dina Jaquez MA DAILY MULTIVITAMIN CAPS -[place] MULTIPLE VITAMINS-MINERALS [id number] Dina Jaquez MA GNP VITAMIN D TABS -[place] CHOLECALCIFEROL TABS [id number] Dina Jaquez MA CURCUMIN EXTRACT POWD -[place] TURMERIC (CURCUMA LONGA) [id number] Dina Jaquez MA HAIR SKIN & NAILS ADVANCED TABS -[place] MULTIPLE VITAMINS-MINERALS [id number] Dina Jaquez MA GARLIC CAPS -[place] GARLIC CAPS [id number] Dina Jaquez MA COQ10 CAPS Non-[place] COENZYME Q10 CAPS [id number] Dina Jaquez MA LO LOESTRIN FE TABS -[place] NORETHIN-ETH ESTRAD-FE BIPHAS TABS [id number] Dina Jaquez MA LISINOPRIL 20 MG TABS -[place] LISINOPRIL [id number] Dina Jaquez MA DICLOFENAC SODIUM 75 MG TBEC -[place] DICLOFENAC SODIUM [id number] Dina Jaquez MA LEVO-T 112 MCG TABS -[place] LEVOTHYROXINE SODIUM [phone] Dina Jaquez MA Medications Administered No information available. Allergies, Adverse Reactions, Alerts Observed No Known Drug Allergies at Results No information available. Plan of Care No information available. Procedures Code Procedure Name Date Entry Date 84251 Ther Ex 88651 Manual Therapy 91292 Ther Ex 89781 Manual Therapy 71830 Ther Ex 95695 Manual Therapy 46413 Ther Ex 90163 Manual Therapy 34540 Ther Ex 23343 Mechanical Traction 33110 Manual Therapy 54925 Ther Ex 09181 Mechanical Traction 39315 Manual Therapy 51428 Ther Ex 81133 Mechanical Traction 77462 Manual Therapy 14157 Ther Ex 26761 Mechanical Traction 10209 Manual Therapy 49227 Ther Ex 14732 Mechanical Traction 66561 Manual Therapy 54061 Evaluation - Moderate 08/13 12786 Ther Ex 21394 Manual Therapy 10528 Mechanical Traction Vital Signs Date Name Value Unit Description BMI (Body Mass Index) 28.06 kg/m2 Bod y Mass Index (Ratio) Height 69 [in_us] height E&M Weight Measured 190 [lb_av] weight E& M Weight Measured 190 [lb_av] weight E& M Immunizations No information available. Advance Directives No information available.
--- OUTSIDE RECORDS SUMMARY | 2025-03-31 11:02 | XMS_ITS | Clinical Summary ---
Author Organization [facility] Address [address] [place] [id number] Care Team Providers Care Rn Clinical Research Name Role Phone Kale Mukherjee MD Primary Care Provider [phone] Social History Tobacco Use Types Packs/Day Years [...] PCV) 019 Zoster-RZV(Shingrix) (1 of 2) 2018 Depression Screening 07/23/2024 COVID-19 Vaccine ( - season) 2025 Influenza Vaccination (#1) 2025 Insurance [employer] Member Subscriber Plan / Payer (Ef fective 2017-Present) Name:Tamiko Christine Relation to Subscriber:Self Name:Tamiko Christine Payer ID:[id number] (NAIC) Group ID:Not on file Type:PPO Address: [facility] [id number] [place] [id number] Care Teams Rn Clinical Research Relationship Specialty Start Date End Date Kale Mukherjee MD PCP - General Family Medicine 03/14/18
--- OUTSIDE RECORDS SUMMARY | 2025-03-31 11:03 | XMS_ITS | Encounter Summary ---
Author Organization [place] [address] Care Team Providers Care Flow Match Sofa Cutter Name Role Phone Kale Mukherjee MD Primary Care Provider [phone] Kale Mukherjee MD Unavailable Alisha Whitaker MD Unavailable [phone] Reason for Visit * Reason Onset Date Comments Urticaria 03/18/2025 Encounter Details Date Type Department Care Team (Late st Contact Info) Description 03/18/2025 Telephone [facility] [address] [place] [address] Hilda Ness MD [address] [place] [address] Urticaria Social History Tobacco Use Types Packs/Day Years [...] on file documented as of this encounter Miscellaneous Notes * Telephone Encounter - Ethel Dillon RN - 03/19/2025 12:43 PM EDT Pt aware. * Telephone Encounter - Hilda Ness MD - 03/19/2025 10:23 AM EDT Sorry a whole body rash wouldn't be associated with stopping the pill or hormonal. * Telephone Encounter - Ruba Santillan RN - 03/18/2025 3:18 PM EDT Situation: Patient para: Unknown Patient age: 54 y.o. Calling in regard to: Patient states she stopped taking OCPs after appt in September. She has had a rash all over her body since. Patient has rx for an antihistamine. Patient sates the rx helps but in a day or 2 she needs medication again. She has been following this with her PCP. She also has a dermatology appt. She would like to make sure this isn't hormonal/ get your opinion. Background: Last appt: 10/10/2024 Last Annual exam: LMP: No LMP recorded. Has previously been seen for this issue: No Next scheduled appt:Visit date not found Has Patient had any Recent Labs: No Most recent labs: Results for orders placed or performed during the hospital encounter of 10/08/24 THYROID STIMULATING HORMONE Result Value Ref Range TSH 0.797 0.270 - 4.200 mcIU/mL VITAMIN D 25 HYDROXY Result Value Ref Range Vit D 25 OH 47.8 30.0 - 150.0 ng/mL Active medications and clinic administered medications: No outpatient medications have been marked as taking for the 03/18/25 encounter (Telephone) with Hilda Ness MD. Assessment: How long has the issue been going on: Since 10/2024 documented in this encounter Plan of Treatment Upcoming Encounters Date Type Department Care Team (Late st Contact Info) Description 10/15/2025 10:50 AM EDT Office Visit [facility] [address] [facility] [address] [place] [phone] Alisha Whitaker MD [address] [facility] [address] [place] [phone] documented as of this encounter Goals Goal Patient Goal Type Associated Problems Recent Progress Patient-Stated? Author Maintain a healthy diet, exercise regularly and maintain an ideal body weight General No Faiza Pepper CCMA documented as of this encounter Visit Diagnoses Not on filedocumented in this encounter Care Teams Flow Match Sofa Cutter Relationship Specialty Start Date End Date Kale Mukherjee MD PCP - General Family Medicine 02/18/18 Kale Mukherjee MD Family Medicine 02/18/18 Alisha Whitaker MD [address] [facility] [address] [place] [phone] Internal Medicine-Endocrinology, Diabetes & Metabolism 04/10/14 documented as of this encounter
[2025-04-01 13:18] LABS: RA Latex Turbid. 11.7 IU/mL (<14.0)
[2025-04-01 18:15] LABS: Antinuclear Antibodies, IFA Negative (.)
== END 2025-03-30 23:59 | disposition home or self-care (01) ==
LOC: LAB.DROPOF 03-31 10:49
PROVIDERS: PCP Nurse Practitioner; Visit Provider Nurse Practitioner
DX: L50.9 Urticaria, unspecified (principal); E03.9 Hypothyroidism, unspecified
CPT/HCPCS: 80053; 82607; 84443; 84550; 85025; 85651; 86038; 86225; 86235; 86431